=== PATIENT | male | born 2000 | race Hispanic/Latino ===

== ENCOUNTER 2022-01-26 15:16 | Emergency (ER) | payer OTHER ==
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
--- NOTE | 2022-01-26 16:20 | RAD REPORT ---
EXAM DESCRIPTION: RAD - Shoulder Right 2 View - 01/26/2022 3:51 pm CLINICAL HISTORY: Right shoulder pain FINDINGS: No fracture or dislocation is seen.
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
[2022-01-26] MEDS ORDERED: HYDROCODONE/APAP 5/325 MG TAB ONE (16:56)
[2022-01-26 17:20] VITALS: BP 127/69; TEMP 98.2; O2SAT 95
== END 2022-01-26 17:08 | disposition home or self-care (01) ==
LOC: ER 15:16
DX: S80.211A Abrasion, right knee, initial encounter (principal); S90.512A Abrasion, left ankle, initial encounter; M25.511 Pain in right shoulder; M25.572 Pain in left ankle and joints of left foot; V29.40XA Motorcycle driver injured in collision with unspecified motor vehicles in traffic accident, initial encounter
CPT/HCPCS: 70450; 72125; 99284